=== PATIENT | male | born 1975 | race Caucasian/White ===

== ENCOUNTER → 2020-12-19 | Day surgery (SDC) | payer OTHER ==
[~2020-12-19] VITALS: Ht 180.3 cm; Wt 102.1 kg
[~2020-12-19] MED LIST: EPINEPHrine HCL 1 MG/10 ML SYRG ONE; LIDOCAINE VISCOUS 2% 15ML UD ONE; MIDAZOLAM HCL 5 MG/ML-1ML VIAL ONE; SODIUM CHLORIDE LOCK 10 ML ONE; diphenhdrAMINE HCL 50 MG/1 ML VL ONE; fentaNYL CITRATE 100 MCG/2 ML VL ONE
== END | disposition home or self-care (01) ==
LOC: GI 08:17
PROVIDERS: ATTEND Internal Medicine Gastroenterology
DX: R13.10 Dysphagia, unspecified (principal); Z68.31 Body mass index [BMI] 31.0-31.9, adult; Z98.890 Other specified postprocedural states; Z79.899 Other long term (current) drug therapy; Z53.8 Procedure and treatment not carried out for other reasons
CPT/HCPCS: J0171; J1200; J2250; J3010

== ENCOUNTER → 2021-04-10 | Day surgery (SDC) | payer OTHER ==
[~2021-04-10] VITALS: Ht 180.3 cm; Wt 95.3 kg
[~2021-04-10] MED LIST changes: -EPINEPHrine HCL 1 MG/10 ML SYRG ONE; -MIDAZOLAM HCL 5 MG/ML-1ML VIAL ONE; -SODIUM CHLORIDE LOCK 10 ML ONE
[2021-04-10 09:20] LABS: Basophils # (auto) 0.1 10 ^3/uL (0-0.2); Basophils % (auto) 0.9 % (0.0-2.0); Eosinophils # (auto) 0.8 10 ^3/uL (0-0.8); Eosinophils % (auto) 12.4 % (0.0-7.0); Lymphocytes # (auto) 1.1 10 ^3/uL (0.4-5.4); Lymphocytes % (auto) 18.3 % (10.0-50.0); Mean Corpuscular Hemoglobin 32.1 pg (28.0-32.0); Mean Corpuscular Volume 94.5 fL (80.0-100.0); Monocytes # (auto) 0.7 10 ^3/uL (0-1.3); Monocytes % (auto) 11.1 % (0.0-12.0); Neutrophils # (auto) 3.6 10 ^3/uL (1.6-8.6); Neutrophils % (auto) 57.3 % (37.0-80.0); Red Blood Cells 4.97 10^6/uL (4.5-5.90); Red Cell Distribution Width 12.2 % (11.8-14.3); White Blood Cell 6.3 10^3/uL (4.4-10.8)
[2021-04-10 09:28] LABS: INR 1.13 (0.9-1.15); Partial Thromboplastin Time 26.5 sec (23.6-33.0)
[2021-04-10 09:32] LABS: BUN/Creatinine Ratio 11.7; Calcium 8.6 mg/dL (8.5-10.1); Potassium 4.6 mmol/L (3.5-5.1)
[2021-04-10] MEDS: MIDAZOLAM HCL 5 MG/ML-1ML VIAL ONE ×3 (10:38→10:45)
[2021-04-10] MEDS: fentaNYL CITRATE 100 MCG/2 ML VL ONE ×2 (10:38→10:41)
[2021-04-10 11:25] VITALS: BP 117/78
== END | disposition home or self-care (01) ==
LOC: GI 08:25
PROVIDERS: ATTEND Internal Medicine Gastroenterology
DX: R13.10 Dysphagia, unspecified (principal); K21.9 Gastro-esophageal reflux disease without esophagitis; K44.9 Diaphragmatic hernia without obstruction or gangrene; K22.70 Barrett's esophagus without dysplasia; K29.90 Gastroduodenitis, unspecified, without bleeding; K29.50 Unspecified chronic gastritis without bleeding; I10 Essential (primary) hypertension; E07.9 Disorder of thyroid, unspecified; Z20.822 Contact with and (suspected) exposure to COVID-19
CPT/HCPCS: 36415; 43239; 43450; 80048; 85025; 85610; 85730; 88305; 88342; J1200; J2250; J3010; J7030; 99152